=== PATIENT | male | born 1960 | race Caucasian/White ===

== ENCOUNTER 2021-01-24 09:53 | Day surgery (SDC) | payer MEDICAID ==
[~2021-01-24] VITALS: Ht 165.1 cm; Wt 62.1 kg
[2021-01-24] MEDS ORDERED: normal saline 1000ml 1,000 ML IV PRN (10:15)
[2021-01-24 10:25] VITALS: BP 113/77
[2021-01-24] MEDS ORDERED: heparin sodium, porcine/PF 100unit/ml 5ML syringe ONE (10:43)
[2021-01-24] MEDS ORDERED: LIDOcaine 1%/PF 5ML 10 MG/ML VIAL ONE (10:43)
[2021-01-24] MEDS ORDERED: midazolam 1 mg/ML 2ml injection ONE ×2 (10:43→11:28)
[2021-01-24] MEDS ORDERED: fentaNYL/PF 50MCG/1 ML 2ML syringe ONE ×2 (10:43→11:26)
[2021-01-24] MEDS ORDERED: APIX5TAB3 PO (10:48)
[2021-01-24] MEDS ORDERED: IRON150C13 PO (10:48)
[2021-01-24] MEDS ORDERED: ONDA8TAB65 PO (10:48)
[2021-01-24] MEDS ORDERED: OXYC5TAB2 PO (10:48)
[2021-01-24 11:53] VITALS: BP 107/67
[2021-01-24 12:00] VITALS: BP 101/72
[2021-01-24 12:15] VITALS: BP 117/80
== END 2021-01-24 12:25 | disposition home or self-care (01) ==
LOC: SSTAY O 09:53
PROVIDERS: ATTEND Radiology Vascular & Interventional Radiology
DX: C20 Malignant neoplasm of rectum (principal); D50.0 Iron deficiency anemia secondary to blood loss (chronic); K21.9 Gastro-esophageal reflux disease without esophagitis; Z93.3 Colostomy status; Z79.899 Other long term (current) drug therapy
CPT/HCPCS: 36415; 36561; 76937; 77001; 99152; 99153; C1769; C1788; C1894; J1642; J2250; J3010; 36558

== ENCOUNTER 2021-03-29 06:12 | Inpatient (IN) | payer MEDICAID ==
[2021-03-17 16:44] LABS: BASOPHILS # (AUTO) 0.1 X10'3 (0-0.2); EOSINOPHILS # (AUTO) 0.1 X10'3 (0-0.9); RED CELL DISTRIBUTION WIDTH 17.2 % (11.5-14.5)
[2021-03-17 16:46] LABS: EOSINOPHILS % (AUTO) 0.8 % (0-6); LYMPHOCYTES # (AUTO) 0.9 X10'3 (1.1-4.8); MEAN CORPUSCULAR HEMOGLOBIN 23.2 PG (27.0-31.0); MEAN CORPUSCULAR VOLUME 72.5 FL (78-98); MEAN PLATELET VOLUME 6.1 FL (7.4-10.4); MONOCYTES # (AUTO) 0.6 X10'3 (0-0.9); MONOCYTES % (AUTO) 5.9 % (2-12); NEUTROPHILS # (AUTO) 8.7 X10'3 (1.8-7.7); NEUTROPHILS % (AUTO) 83.3 % (42-75); PRE OP HEMATOCRIT 26.2 % (42.0-52.0); PRE OP PLATELET COUNT 652 X10'3 (140-440); RED BLOOD COUNT 3.61 X10'6 (4.70-6.10)
[2021-03-17 16:50] LABS: PRE OP HEMOGLOBIN 8.4 g/dL (14.0-17.9)
[2021-03-17 16:52] LABS: ALBUMIN 2.7 G/DL (3.4-5.0); ALBUMIN/GLOBULIN RATIO 0.6 (1.1-1.5); ALKALINE PHOSPHATASE 67 IU/L (46-116); BLOOD UREA NITROGEN 13 MG/DL (7-18); BUN/CREATININE RATIO 13.7 (5.4-32.0); CALCIUM 8.6 MG/DL (8.5-10.1); CHLORIDE 104 MMOL/L (99-107); CREATININE 0.95 MG/DL (0.60-1.10); PRE OP ALT 16 U/L (30-65); PRE OP ANION GAP 11 (8-16); PRE OP AST 16 U/L (10-37); PRE OP BILIRUB, TOTAL 0.2 MG/DL (0.0-1.0); PRE OP GLUCOSE 92 MG/DL (70-104); PRE OP POTASSIUM 4.2 MMOL/L (3.4-5.1); PRE OP SODIUM 140 MMOL/L (135-145); TOTAL CARBON DIOXIDE 24.7 MMOL/L (24-32); TOTAL PROTEIN 7.5 G/DL (6.4-8.2); eGFR 81 ML/MIN
[2021-03-17 17:17] LABS: PLATELET ESTIMATE INCREASED
[2021-03-17 17:18] LABS: ANISOCYTOSIS 1+; ELLIPTOCYTES FEW; HYPOCHROMASIA 1+; MICROCYTOSIS 1+; POLYCHROMASIA 1+; ROULEAUX 1+
[~2021-03-29] VITALS: Ht 165.1 cm; Wt 58.8 kg
[2021-03-29] VITALS (25 sets, daily range): BP systolic 105–128; BP diastolic 66–87
[~2021-03-29 06:12] MED LIST: CEPH250T PO; IRON150C13 PO; IRON1CAP13 PO; LEVE10002 PO; LIDO5CRE18 TOP; NALO4SPR BOTHNARES; NAPR-1170 PO; ONDA-104 PO; OXYC-138 PO; PANT-47 PO; POLY119P2 PO; PROC-8 PO; ceFAZolin 2gm in dextrose, iso 50 ML IV ONE; famotidine 20mg tablet PO ONE; ringers solution, lacted 1,000 ML IV SCH
[2021-03-29] MEDS ORDERED: sevoflurane 250ml liquid IH ONE (09:52)
[2021-03-29] MEDS ORDERED: fentaNYL/PF 50MCG/1 ML 2ML syringe ONE (09:56)
[2021-03-29] MEDS ORDERED: midazolam 1 mg/ML 2ml injection ONE (09:57)
[2021-03-29] MEDS ORDERED: LIDOcaine 2% (20mg/ml) 5ml vial ONE ×2 (10:04→10:19)
[2021-03-29] MEDS ORDERED: propofol inj 20 ML IV ONE ×2 (10:04→10:19)
[2021-03-29] MEDS ORDERED: meperidine/PF 25mg/ml syringe IV PRN ×2 (10:10)
[2021-03-29] MEDS ORDERED: ringers solution, lacted 1,000 ML IV SCH (10:10)
[2021-03-29] MEDS ORDERED: hydrALAZINE 20mg/ml inj. IV PRN (10:10)
[2021-03-29] MEDS ORDERED: morphine 4 MG/ML inj SYRINge IV PRN (10:10)
[2021-03-29] MEDS ORDERED: acetaminophen 1,000mg/100ml IV 100 ML IV PRN (10:10)
[2021-03-29] MEDS ORDERED: labetalol 20mg/4ml (5mg/ml) syringe IV PRN (10:10)
[2021-03-29] MEDS ORDERED: ondansetron/PF 4mg/2ml inj IV PRN ×2 (10:10→11:45)
[2021-03-29] MEDS ORDERED: proCHLORperazine 10 MG/2 ml inj IV PRN (10:10)
[2021-03-29] MEDS ORDERED: morphine 2 MG/ML inj. syringe IV PRN (10:10)
[2021-03-29] MEDS ORDERED: dexamethasone sod phosphate 4mg/ml inj. ONE (10:19)
[2021-03-29] MEDS ORDERED: ondansetron/PF 4mg/2ml inj ONE (10:19)
--- NOTE | 2021-03-29 10:42 | NUR ---
Received from OR via , accompanied by Anesthesiologist DR SAXENA and report given by Anesthesiolgist. PT PRESENTS WITH 20G RIGHT FOREARM, ABD DRESSING ON RIGHT ABDOMEN DRY AND INTACT, VSS. Addendum: 03/29/21 at 1056 by Khadra Cazares RN, RN Amended: Links added.
[2021-03-29] MEDS: meperidine/PF 25mg/ml syringe IV PRN ×2 (11:23→12:10)
[2021-03-29] MEDS ORDERED: non-formulary drug (Naloxone HCl (Narcan) 1 SPRAYS) BOTHNARES SCH (11:25)
[2021-03-29] MEDS ORDERED: LIDOCAINE 5% OINTMENT 35GM TP PRN (11:40)
[2021-03-29] MEDS ORDERED: ondansetron 4mg rapidly disintigrating tab PO PRN (11:40)
[2021-03-29] MEDS ORDERED: polyethylene glycol 3350 17gm powd pack PO PRN (11:40)
[2021-03-29] MEDS ORDERED: HYDROcodone/acetaminophen 10/325mg tab PO PRN (11:45)
--- NOTE | 2021-03-29 13:02 | NUR ---
Report called to receiving nurse CLAUDY RIVERS. [facility] 1 CANE Bel[facility]ings . Special Issues communicated to receiving nurse. Addendum: 03/29/21 at 1415 by Khadra Cazares RN, RN Amended: Links added.
[2021-03-29] MEDS: oxyCODONE/APAP 10/325mg tablet PO PRN ×2 (17:11→20:37)
[2021-03-29] MEDS: proCHLORperazine 10mg tablet PO SCH ×2 (17:12→20:35)
--- NOTE | 2021-03-29 18:43 | NUR ---
Problems reprioritized. Patient report given, questions answered & plan of care reviewed with Xavi RIVERS.
[2021-03-29] MEDS: levetiracetam 250mg tablet PO SCH (20:34)
[2021-03-29] MEDS: pantoprazole 40mg Tablet.DR PO SCH (20:35)
[2021-03-29] MEDS: cephalexin 500mg capsule PO SCH (20:35)
[2021-03-29] MEDS: ringers solution, lacted 1,000 ML IV SCH (21:45)
[2021-03-30] VITALS: BP 92/61
[2021-03-30] MEDS: morphine 4 MG/ML inj SYRINge IV PRN ×3 (00:25→12:16)
[2021-03-30] MEDS: ringers solution, lacted 1,000 ML IV SCH ×3 (00:26→17:45)
--- NOTE | 2021-03-30 06:51 | NUR ---
Patient in room [facility]. I have received report from WILFREDO RIVERS and had the opportunity to ask questions and assume patient care.
[2021-03-30] MEDS: cephalexin 500mg capsule PO SCH ×3 (07:23→20:50)
[2021-03-30] MEDS: levetiracetam 250mg tablet PO SCH ×2 (07:25→20:50)
[2021-03-30] MEDS: proCHLORperazine 10mg tablet PO SCH ×4 (07:25→20:51)
[2021-03-30] MEDS: pantoprazole 40mg Tablet.DR PO SCH ×2 (07:27→20:50)
[2021-03-30] MEDS: oxyCODONE/APAP 10/325mg tablet PO PRN ×2 (07:27→20:51)
--- NOTE | 2021-03-30 07:34 | NUR ---
03/29/21 1310 DEMEROL REASSESSMENT NOT DONE
[2021-03-30 08:00] VITALS: BP 92/58
[2021-03-30] MEDS ORDERED: [UNRECOGNIZED DRUG - OTHER] PO SCH (08:00)
[2021-03-30] MEDS ORDERED: IRON PS CMPLX PO SCH (08:00)
[2021-03-30] MEDS ORDERED: VIT B12 PO SCH (08:00)
[2021-03-30] MEDS: iron polysaccharide complex 150mg capsule PO SCH (08:30)
--- NOTE | 2021-03-30 14:44 | NUR ---
Nutrition consult re: pt states he lost about 35 lbs from cancer. Noted pt with colon and liver CA, admit for ostomy prolapse, s/p stoma revision 03/29. Only scaled wt hx in EMR is 136 lbs 01/24/21 using a standing scale, current standing scaled wt is 130 lbs, this is a non-significant wt loss of 4% in two months. Pt seen at bedside reports he used to weigh 160 lbs and has lost weight over the course of a year, this is 19% wt loss. Pt reports a low appetite and states he has difficulty swallowing and usually only drinks Ensure at home. Pt on a regular diet, pending first meal since diet advancement. Recommend BSS with ST to determine need for texture modification. Pt likely unable to meet estimated nutrient needs at home if truly mostly just consumes Ensure. Pt with visible mild fat and muscle wasting. Pt currently meets criteria for non-severe malnutrition, though at a high risk for severe malnutrition given cancer and possible poor PO intake. Attempted TC to RN with recommendation for Ensure Enlive TIDWM however RN unavailable. Will place recommendation in the EMR, to be sent pending physician approval in EMR. Will continue to follow closely and monitor need for further nutrition intervention. Recommendations: 1) Continue regular diet if pt able to tolerate pending BSS with ST 2) Ensure Enlive TIDWM, pending physician approval in EMR 3) Monitor need for additional nutrition intervention; encourage PO intake 4) Bowel care per MD 5) Weekly scaled weights Addendum: 03/30/21 at [address] Amended: Links added.
[2021-03-30 15:12] VITALS: BP 92/58
[2021-03-30 16:28] VITALS: BP 86/48
[2021-03-30] MEDS ORDERED: normal saline 500ml IV soln 500 ML IV ONE (16:45)
[2021-03-30 18:00] VITALS: BP 99/68
[2021-03-30] MEDS ORDERED: lactose-reduced food (Ensure Enlive) - 237ml bottle PO SCH (18:00)
--- NOTE | 2021-03-30 18:43 | NUR ---
Problems reprioritized. Patient report given, questions answered & plan of care reviewed with shivam cochran .
--- NOTE | 2021-03-30 21:12 | NUR ---
2105 ENTRY OF SACRAL PAIN ON PHYSICAL ASSESSMENT ENTERED IN ERROR
[2021-03-31] VITALS (7 sets, daily range): BP systolic 86–108; BP diastolic 46–68
[2021-03-31] MEDS: ringers solution, lacted 1,000 ML IV SCH ×2 (03:45→06:57)
--- NOTE | 2021-03-31 06:40 | NUR ---
Patient in room [facility]. I have received report from shivam cochran and had the opportunity to ask questions and assume patient care.
[2021-03-31] MEDS: iron polysaccharide complex 150mg capsule PO SCH (07:00)
[2021-03-31] MEDS: oxyCODONE/APAP 10/325mg tablet PO PRN ×3 (07:00→20:56)
[2021-03-31] MEDS: proCHLORperazine 10mg tablet PO SCH ×4 (07:01→20:55)
[2021-03-31] MEDS: cephalexin 500mg capsule PO SCH ×3 (07:01→20:55)
[2021-03-31] MEDS: levetiracetam 250mg tablet PO SCH ×2 (07:01→20:56)
[2021-03-31] MEDS: pantoprazole 40mg Tablet.DR PO SCH ×2 (07:02→20:55)
[2021-03-31 07:03] LABS: BASOPHILS # (AUTO) 0.1 X10'3 (0-0.2); EOSINOPHILS # (AUTO) 0.2 X10'3 (0-0.9); HEMATOCRIT 23.8 % (42.0-52.0); HEMOGLOBIN 7.6 g/dl (14.0-17.9); LYMPHOCYTES # (AUTO) 1.1 X10'3 (1.1-4.8); LYMPHOCYTES % (AUTO) 12.3 % (21-51); MEAN CORPUSCULAR HGB CONC 31.9 g/dL (33.0-36.5); MEAN CORPUSCULAR VOLUME 72.1 FL (78-98); MEAN PLATELET VOLUME 6.6 FL (7.4-10.4); MONOCYTES # (AUTO) 1.1 X10'3 (0-0.9); MONOCYTES % (AUTO) 12.1 % (2-12); NEUTROPHILS # (AUTO) 6.4 X10'3 (1.8-7.7); NEUTROPHILS % (AUTO) 72.6 % (42-75); PLATELET COUNT 426 X10'3 (140-440); RED BLOOD COUNT 3.29 X10'6 (4.70-6.10); RED CELL DISTRIBUTION WIDTH 18.5 % (11.5-14.5); WHITE BLOOD COUNT 8.8 X10'3 (4.5-11.0)
[2021-03-31 07:26] LABS: ALBUMIN 2.2 G/DL (3.4-5.0); ANION GAP 2 (8-16); BLOOD UREA NITROGEN 10 MG/DL (7-18); BUN/CREATININE RATIO 10.8 (5.4-32.0); CHLORIDE 106 MMOL/L (99-107); CREATININE 0.93 MG/DL (0.60-1.10); GLUCOSE 90 MG/DL (70-104); POTASSIUM 4.3 MMOL/L (3.5-5.1); SODIUM 137 MMOL/L (135-145); TOTAL CARBON DIOXIDE 28.9 MMOL/L (24-32); eGFR 82 ML/MIN
[2021-03-31 11:53] LABS: ANISOCYTOSIS 2+; HYPOCHROMASIA 1+; MICROCYTOSIS 1+; PLATELET ESTIMATE NORMAL; TOTAL CELLS COUNTED 100
[2021-03-31 11:54] LABS: POLYCHROMASIA 1+; TOXIC GRANULATION 1+
[2021-03-31] MEDS ORDERED: normal saline 1000ml 1,000 ML IV ONE (12:20)
[2021-03-31] MEDS: lactose-reduced food (Ensure Enlive) - 237ml bottle PO SCH ×3 (13:00→19:00)
--- NOTE | 2021-03-31 15:24 | NUR ---
F/u: Pt s/p BSS with ST recs to continue regular consistency of food and liquids though pt needs to take small bites and sips. TC to RN who reports pt will only drink strawberry flavor for the Ensure Enlive. Given product shortage strawberry is currently out of stock. D/w RN strawberry Glucerna is available as substitution if pt agreeable and adamantly refusing chocolate and vanilla Ensures. RN to d/w pt. RN also states pt has been requesting chocolate shakes. D/w dietary to send chocolate shake BIDLD. Will continue to follow closely. Addendum: 03/31/21 at [address] Amended: Links added. Addendum: 03/31/21 at [address] Per RN pt agreeable to substitute with strawberry Glucerna pending restock of strawberry Ensure Enlive, d/w dietary.
--- NOTE | 2021-03-31 18:53 | NUR ---
Problems reprioritized. Patient report given, questions answered & plan of care reviewed with shivam cochran.
[2021-04-01] VITALS: BP 110/60
[2021-04-01] MEDS: ringers solution, lacted 1,000 ML IV SCH ×2 (00:38→09:45)
--- NOTE | 2021-04-01 06:42 | NUR ---
Patient in room [facility]. I have received report from Xavi cochran and had the opportunity to ask questions and assume patient care.
[2021-04-01 07:13] LABS: BASOPHILS % (AUTO) 0.5 % (0-1); EOSINOPHILS # (AUTO) 0.5 X10'3 (0-0.9); EOSINOPHILS % (AUTO) 4.4 % (0-6); HEMATOCRIT 24.7 % (42.0-52.0); HEMOGLOBIN 7.7 g/dl (14.0-17.9); LYMPHOCYTES % (AUTO) 9.4 % (21-51); MEAN CORPUSCULAR HEMOGLOBIN 22.7 PG (27.0-31.0); MEAN CORPUSCULAR HGB CONC 31.2 g/dL (33.0-36.5); MEAN CORPUSCULAR VOLUME 72.9 FL (78-98); MEAN PLATELET VOLUME 6.9 FL (7.4-10.4); MONOCYTES # (AUTO) 0.9 X10'3 (0-0.9); MONOCYTES % (AUTO) 8.7 % (2-12); PLATELET COUNT 414 X10'3 (140-440); RED BLOOD COUNT 3.38 X10'6 (4.70-6.10); RED CELL DISTRIBUTION WIDTH 18.4 % (11.5-14.5); WHITE BLOOD COUNT 10.4 X10'3 (4.5-11.0)
[2021-04-01 08:00] VITALS: BP 120/77
[2021-04-01] MEDS: iron polysaccharide complex 150mg capsule PO SCH (08:01)
[2021-04-01] MEDS: pantoprazole 40mg Tablet.DR PO SCH (08:01)
[2021-04-01] MEDS: proCHLORperazine 10mg tablet PO SCH (08:01)
[2021-04-01] MEDS: levetiracetam 250mg tablet PO SCH (08:01)
[2021-04-01] MEDS: oxyCODONE/APAP 10/325mg tablet PO PRN (08:02)
[2021-04-01] MEDS: cephalexin 500mg capsule PO SCH (08:02)
[2021-04-01] MEDS: lactose-reduced food (Ensure Enlive) - 237ml bottle PO SCH (08:06)
--- NOTE | 2021-04-01 08:25 | NUR ---
Dr Julius roche. stated pt is ready for discharge. TITA Herrmann, notified.
[2021-04-01 11:00] VITALS: BP 108/67
[2021-04-01 12:24] LABS: ANISOCYTOSIS 2+; PLATELET ESTIMATE NORMAL; TOTAL CELLS COUNTED 100
[2021-04-01 12:25] LABS: ELLIPTOCYTES 1+; HYPOCHROMASIA 1+; MICROCYTOSIS 1+; POLYCHROMASIA 1+
--- NOTE | 2021-04-01 12:27 | NUR ---
Pt discharged in stable condition to home with . Belongings sent with patient. Iv removed tip intact, no complications. Pt educated to make follow up appointment with Dr. Yeh.
== END 2021-04-01 12:25 | disposition home or self-care (01) | DRG 223 ==
LOC: PAS 06:12 → UNDOADMIN 17:30 → SUR 3N 17:30
PROVIDERS: ADMIT Surgery; ATTEND Surgery
PROC: 0DSL0ZZ Reposition Transverse Colon, Open Approach (ICD-10-PCS; principal; 2021-03-29 09:52)
DX: K94.09 Other complications of colostomy (principal); R64 Cachexia; F17.220 Nicotine dependence, chewing tobacco, uncomplicated; K21.9 Gastro-esophageal reflux disease without esophagitis; Z80.0 Family history of malignant neoplasm of digestive organs; Z86.711 Personal history of pulmonary embolism; Z68.21 Body mass index [BMI] 21.0-21.9, adult
CPT/HCPCS: 36415; 80048; 80053; 82948; 85007; 85008; 85025; 86885; 86900; 86901; 86920; 92508; 92616; 93005; A4421; A4618; A7000; G0378; J1100; J2001; J2175; J2250; J2270; J2405; J2704; J3010; J7030; J7040; J7120; Q0164; U0003; U0005